=== PATIENT | male | born 1945 | race Caucasian/White ===

== ENCOUNTER 2019-08-18 20:50 | Emergency (ER) | payer OTHER ==
[~2019-08-18] VITALS: Ht 172.7 cm; Wt 95.3 kg
--- NOTE | ~2019-08-18 | EMS ---
[facility] [address] [place] [address] EMS Patient Care Report Name: EDUARD JUNG Room #: REG MATTHEW Manzano#: [id number] Admission: 08/18/19 Attend Phys: Discharge: Date of : 45 Report #: [id number] THIS REPORT FOR: //name// Report Transmitted: 08/18/2019 20:51 EMS Care Summary [facility] MED-ACT Incident [id number] @ 08/18/2019 20:01 Incident Location [address] [place] [address] Patient EDUARD JUNG Male, 74 Years 1945 Patient Address [address] [place] [address] Patient History Diabetes,Hypertension,Alzheimer's,Bipolar II Disorder, Patient Allergies Penicillin allergy,Sulfa, Patient Medications Metoprolol, Tramadol, Lisinopril, Losartan, Furosemide, Buspirone, Trazodone, Insulin, Metformin, Gabapentin, Depakote, Chief Complaint behavioral and suicidal Disposition Transported No Lights/[place] Reason Psychiatric Problem/Abnormal Behavior/Suicide Attempt Transported To [facility] Narrative Arrive at a half-way in the Alzheimer's wing to find the pt sitting in his [facility] [address] [place] [address] EMS Patient Care Report Name: EDUARD JUNG Room #: REG MATTHEW Manzano#: [id number] Admission: 08/18/19 Attend Phys: Discharge: Date of : 45 Report #: [id number] wheel chair yelling at the staff. PD on scene reports that they are familiar with the pt and say they have seen him 3-4 times under similar circumstances and they say that they have had to restrain the pt several times. Staff reports that the pt has been very upset for the past hour or two because someone sat in his seat at dinner and was eating cake and he did not get any. They say the pt came back to his room and trashed it and threatened staff. Staff reports that they called the pt's son and he said to transport the pt to [facility]. Pt is still yelling and threatening to punch staff and PD. Pt is also saying that he wants to and is asking PD shoot him. Pt is continually saying he wants to and he will harm everyone around him. Pt says he will not go to the hospital and he won't get on the cot. EMS, staff and PD all take turns trying to verbally calm the pt down with no success. Staff tries methods that have worked in the past with no success. PD explains to the pt several times that he is going to go to the hospital and that PD and EMS do not want to restrain the pt and that the pt can choose to go to the hospital willingly. 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 Pt is standing at the nursing station and starts to knock things off there desks at them and PD and EMS assist the pt to a seated position on the cot with him actively resisting and trying to throw punches. Soft wrist and ankle restraints are used to secured the pt to the cot and seat belts are then placed. Pt is taken to the ambulance. EMS takes the VS that the pt allows. Pt denies any medical problems, CP or SOB. Pt does say his left arm hurts because it is restrained and wants the restraints taken off. Biocom to [place] with no orders and transport without incident. The pt remains verbally upset. Pt taken to ER room 4 and report to RN's at bedside and care transferred. EMS stays and helps [place] security staff and RN's safely transfer the pt to the ER bed and into securities soft restraints and out of EMS's restraints. Initial Vitals @20:35P: 96,R: 18,GCS: 15,SpO2: 97, Assessments @20:16MENTAL:Combative,Person Oriented,Place Oriented,Event Oriented,Time Oriented,SKIN:HEENT:Head/Face: No Abnormalities,LUNG SOUNDS:General: No Abnormalities,ABDOMEN:General: No Abnormalities,PELVIS//GI:EXTREMITIES:Right Arm: Other,PULSE:NEURO:No Abnormalities, Impression Behavioral/psychiatric episode Timeline 20:00,Call Received 20:00,Psap Call [facility] [address] [place] [address] EMS Patient Care Report Name: EDUARD JUNG Room #: REG MATTHEW Manzano#: [id number] Admission: 08/18/19 Attend Phys: Discharge: Date of : 45 Report #: [id number] 20:01,Dispatched 20:02,En Route 20:11,On Scene 20:14,At Patient 20:35,BP: / M,PULSE: 96,RR: 18 R,SPO2: 97 Ox,ETCO2: ,BG: ,PAIN: ,GCS: 15, 20:37,Depart Scene 20:45,At Destination 21:22,Call Closed Disclaimer v1.1 Copyright 2019 [employer] This EMS Care Summary contains data elements from the applicable legal record (which may be displayed differently). It is designed to provide pertinent information for the following purposes: continuity of care, clinical quality, and state data reporting. The complete legal record is available to ED staff and administrators of the receiving hospital in [employer]'s Patient Tracker. All data is provided "as is."
[2019-08-18 20:57] VITALS: BP 192/87
[2019-08-18] MEDS ORDERED: ACETAMINOPHEN325 MG PO (21:45)
[2019-08-18] MEDS ORDERED: CELEXA 10 MG TA10 M1 PO (21:46)
[2019-08-18] MEDS ORDERED: BISACODYL10 MG RECTAL (21:46)
[2019-08-18] MEDS ORDERED: CLARITIN10 M3 PO (21:47)
[2019-08-18] MEDS ORDERED: COLACE100 MG PO (21:47)
[2019-08-18] MEDS ORDERED: ARICEPT10 M1 PO (21:48)
[2019-08-18] MEDS ORDERED: DEPAKOTE 250MG250 M1 PO (21:48)
[2019-08-18] MEDS ORDERED: FUROSEMIDE 20 M20 MG PO (21:49)
[2019-08-18] MEDS ORDERED: FOLIC ACID1 MG PO (21:49)
[2019-08-18] MEDS ORDERED: GEODON20 M1 IM ×2 (22:25→22:28)
[2019-08-18] MEDS ORDERED: GEODON20 MG PO ×2 (22:25→22:28)
== END 2019-08-19 01:10 ==
LOC: ER 20:50
DX: R45.1 Restlessness and agitation (principal); M25.522 Pain in left elbow; M25.512 Pain in left shoulder; Z88.2 Allergy status to sulfonamides